=== PATIENT | female | born 1990 | race Caucasian/White ===

== ENCOUNTER → 2016-08-13 | Outpatient (CLI) | payer OTHER | END | disposition home or self-care (01) | LOC: LABWHC1 16:45 | PROVIDERS: ATTEND Physician Assistant Medical | DX: L70.0 Acne vulgaris (principal) | CPT/HCPCS: 36415; 84702 ==

== ENCOUNTER → 2016-12-22 | Outpatient (CLI) | payer OTHER ==
[2016-12-22 11:41] LABS: Basophils # (A) 0.1 k/uL (0-0.2); Basophils % (A) 1 %; CH 31.9; CHCM 34.1; Eosinophils # (A) 0.1 k/uL (0-0.7); Eosinophils % (A) 1 %; HCT 43.8 % (34.0-46.0); HDW 2.28; HGB 14.5 gm/dL (11.4-16.0); Luc # (Auto) 0.15; Luc % (Auto) 2; Lymphocytes # (A) 2.5 k/uL (1.0-4.8); Lymphocytes % (A) 25 %; MCH 31.1 pg (25.0-35.0); MCHC 33.1 g/dL (31.0-37.0); MCV 93.8 fL (80.0-100.0); Mean Platelet Volume 7.7; Monocytes # (A) 0.5 k/uL (0-1.0); Monocytes % (A) 5 %; Neutrophils # (A) 6.7 k/uL (1.3-7.7); Neutrophils % (A) 68 %; RBC 4.66 m/uL (3.80-5.40); RDW 13.1 % (11.5-15.5); WBC 9.9 k/uL (3.8-10.6); WBC (Perox) 9.36
[2016-12-22 12:16] LABS: ALT 26 U/L (9-52); AST 15 U/L (14-36); Cholesterol 208 mg/dL (<200)
== END | disposition home or self-care (01) ==
LOC: LABWHC1 10:33
PROVIDERS: ATTEND Physician Assistant Medical
DX: L70.0 Acne vulgaris (principal)
CPT/HCPCS: 36415; 82465; 84450; 84460; 84478; 84702; 85025

== ENCOUNTER 2022-01-25 09:27 | Outpatient (CLI) | payer BC, OTHER ==
[2022-01-25 09:58] LABS: Appearance,Urine Clear (Clear); Bilirubin,Urine Negative (Negative); Blood,Urine Negative (Negative); Color,Urine Colorless; Glucose,Urine (UA) Negative (Negative); Ketones,Urine Negative (Negative); Leukocyte Esterase,Urine Negative (Negative); Nitrite,Urine Negative (Negative); Protein,Urine Negative (Negative); Specific Gravity,Urine 1.004 (1.001-1.035); Urobilinogen,Urine <2.0 mg/dL (<2.0)
[2022-01-25 11:07] LABS: ALT 11 U/L (4-34); AST 20 U/L (14-36); African American GFR (CKD) >90 (>60 ml/min/1.73 sqM); Blood Urea Nitrogen 6 mg/dL (7-17); LDH 396 U/L (313-618); Non-African American GFR(CKD) >90 (>60 ml/min/1.73 sqM); Uric Acid 2.9 mg/dL (3.7-7.4)
[2022-01-25 11:17] LABS: Basophils % (A) 0 %; Eosinophils % (A) 0 %; HCT 32.7 % (34.0-46.0); HGB 11.2 gm/dL (11.4-16.0); Lymphocytes # (A) 1.7 k/uL (1.0-4.8); Lymphocytes % (A) 16 %; MCH 32.4 pg (25.0-35.0); MCHC 34.3 g/dL (31.0-37.0); MCV 94.2 fL (80.0-100.0); Monocytes # (A) 0.5 k/uL (0-1.0); Monocytes % (A) 4 %; Neutrophils # (A) 8.4 k/uL (1.3-7.7); Neutrophils % (A) 78 %; Platelet Count 254 k/uL (150-450); RBC 3.47 m/uL (3.80-5.40); RDW 12.4 % (11.5-15.5); WBC 10.8 k/uL (3.8-10.6)
[2022-01-25 12:02] LABS: Creatinine,Urine Random 18.8 mg/dL; Protein/Creatinine Ratio,Urine 0.585
[2022-01-25 12:11] VITALS: BP 134/76; PULSE 72; RESP 16; TEMP 97.5
== END 2022-01-25 11:47 | disposition home or self-care (01) ==
LOC: FBPOP 09:27
PROVIDERS: ATTEND Obstetrics & Gynecology
DX: H53.8 Other visual disturbances (principal)
CPT/HCPCS: 59025; 81003; 82565; 82570; 83615; 84156; 84450; 84460; 84520; 84550; 85025; 99215

== ENCOUNTER 2022-02-27 06:00 | Inpatient (IN) | payer BC ==
[2022-02-27] MEDS ORDERED: TERBUTALINE 1 MG/ML VIAL SQ PRN (06:11)
[2022-02-27] MEDS ORDERED: LIDOCAINE 0.5% (PF) 5 MG/ML (50 ML SDV) SQ PRN (06:11)
[2022-02-27] MEDS ORDERED: OXYTOCIN 30 UNITS/500 ML NS 30 UNIT in SALINE 1 500ML.BAG IV SCH ×2 (06:15→12:15)
[2022-02-27] MEDS: LACTATED RINGERS 1,000 ML IV SCH ×2 (06:20→19:59)
[2022-02-27 06:42] LABS: Basophils % (A) 0 %; Eosinophils # (A) 0.1 k/uL (0-0.7); Eosinophils % (A) 0 %; HCT 33.7 % (34.0-46.0); HGB 11.5 gm/dL (11.4-16.0); Lymphocytes # (A) 2.4 k/uL (1.0-4.8); Lymphocytes % (A) 20 %; MCHC 34.1 g/dL (31.0-37.0); MCV 90.9 fL (80.0-100.0); Mean Platelet Volume 8.4; Monocytes # (A) 0.7 k/uL (0-1.0); Monocytes % (A) 6 %; Neutrophils # (A) 8.7 k/uL (1.3-7.7); Neutrophils % (A) 72 %; Platelet Count 260 k/uL (150-450); RBC 3.71 m/uL (3.80-5.40); RDW 13.1 % (11.5-15.5); WBC 12.1 k/uL (3.8-10.6)
[2022-02-27] MEDS ORDERED: diphenhydrAMINE 50 MG CAP PO PRN (12:01)
[2022-02-27] MEDS ORDERED: SIMETHICONE 80 MG CHEWABLE PO PRN (12:01)
[2022-02-27] MEDS ORDERED: diphenhydrAMINE 25 MG CAP PO PRN (12:01)
[2022-02-27] MEDS ORDERED: HYDROCORTISONE 2.5% RECTAL CREAM 30 GM TUBE RECTAL PRN (12:01)
[2022-02-27] MEDS ORDERED: ZOLPIDEM 5 MG TAB PO PRN (12:01)
[2022-02-27] MEDS ORDERED: diphenhydrAMINE 50 MG/ML 1 ML VIAL IVP PRN ×2 (12:01)
[2022-02-27] MEDS ORDERED: LANOLIN CREAM 5 GM TUBE TOPICAL PRN (12:01)
[2022-02-27] MEDS ORDERED: BENZOCAINE/MENTHOL SPRAY 1 GM/SPRAY AEROSOL TOPICAL PRN (12:01)
--- NOTE | 2022-02-27 12:11 | P.HPOB ---
History of Present Illness H&P Date: 02/27/22 Chief Complaint: Induction of Labor 31 year old presents at 37 weeks for induction of labor. She has been having ocular migraines with vision loss. These have been worsening over the last few weeks. I discussed the case with MFSophie who advised delivery. Cervix is 3/70/-2. She is reymundo irregularly and heart tones 140 with moderate variability and reactive. Review of Systems All systems: negative Constitutional: Denies chills, Denies fever Eyes: denies blurred vision, denies pain Ears, nose, mouth and throat: Denies headache, Denies sore throat Cardiovascular: Denies chest pain, Denies shortness of breath Respiratory: Denies cough Gastrointestinal: Denies abdominal pain, Denies diarrhea, Denies nausea, Denies vomiting Genitourinary: Denies dysuria, Denies hematuria Musculoskeletal: Denies myalgias Integumentary: Denies pruritus, Denies rash Neurological: Denies numbness, Denies weakness Psychiatric: Denies anxiety, Denies depression Endocrine: Denies fatigue, Denies weight change Past Medical History Past Medical History: No Reported History History of Any Multi-Drug Resistant Organisms: None Reported Past Surgical History: No Surgical Hx Reported Additional Past Surgical History / Comment(s): Patient has had oral surgery. Past Anesthesia/Blood Transfusion Reactions: No Reported Reaction Past Psychological History: No Psychological Hx Reported Smoking Status: Never smoker Past Alcohol Use History: None Reported Past Drug Use History: None Reported Medications and Allergies Home Medications Medication Instructions Recorded Confirmed Type Jsn-Rqif-[place] Acid 1 tab PO HS 03/11/14 02/27/22 History [-U Capsule (formulary)] Allergies Allergy/AdvReac Type Severity Reaction Status Date / Time No Known Allergies Allergy Verified 02/27/22 06:09 Exam Osteopathic Statement: *. No significant issues noted on an osteopathic structural exam other than those noted in the History and Physical/Consult. Vital Signs Temp Pulse Resp BP Pulse Ox 02/27/22 11:45 62 16 129/74 02/27/22 11:33 61 16 124/72 02/27/22 11:18 80 16 132/77 02/27/22 06:08 97.6 F 85 16 138/83 98 Intake and Output 02/26/22 02/27/22 02/27/22 22:59 06:59 14:59 Output Total 400 Balance -400 Output: Estimated Blood Loss 400 Other: Weight 82.554 kg HEart: RRR Lungs: CTAB Abdomen: soft, nontender Extremeties: neg kezia's Results Result Diagrams: 02/27/22 06:20 Abnormal Lab Results - Last 24 Hours (Table) 02/27/22 Range/Units 06:20 WBC 12.1 H (3.8-10.6) k/uL RBC 3.71 L (3.80-5.40) m/uL Hct 33.7 L (34.0-46.0) % Neutrophils # 8.7 H (1.3-7.7) k/uL Assessment and Plan (1) Ocular migraine Current Visit: Yes Status: Chronic Code(s): G43.109 - MIGRAINE WITH AURA, NOT INTRACTABLE, W/O STATUS MIGRAINOSUS SNOMED Code(s): 59441197 (2) 37 weeks gestation of Current Visit: Yes Status: Acute Code(s): Z3A.37 - 37 WEEKS GESTATION OF SNOMED Code(s): 48684867 Plan: 1. induction of labor with amniotomy and pitocin 2. anticipate normal vaginal delivery
[2022-02-27] MEDS: IBUPROFEN 600 MG TAB PO PRN ×2 (12:50→19:57)
[2022-02-27] MEDS: ACETAMINOPHEN TAB 325 MG TAB PO PRN (18:15)
[2022-02-27] MEDS: SENNOSIDES-DOCUSATE SODIUM 1 EACH TAB PO SCH (19:58)
[2022-02-28 06:57] LABS: Basophils % (A) 0 %; Eosinophils # (A) 0.1 k/uL (0-0.7); Eosinophils % (A) 0 %; HCT 30.8 % (34.0-46.0); HGB 10.3 gm/dL (11.4-16.0); Lymphocytes # (A) 2.4 k/uL (1.0-4.8); Lymphocytes % (A) 18 %; MCH 31.4 pg (25.0-35.0); MCHC 33.4 g/dL (31.0-37.0); Mean Platelet Volume 8.9; Monocytes # (A) 0.8 k/uL (0-1.0); Monocytes % (A) 6 %; Neutrophils # (A) 9.9 k/uL (1.3-7.7); Neutrophils % (A) 73 %; Platelet Count 211 k/uL (150-450); RBC 3.28 m/uL (3.80-5.40); RDW 13.1 % (11.5-15.5); WBC 13.5 k/uL (3.8-10.6)
[2022-02-28] MEDS: SENNOSIDES-DOCUSATE SODIUM 1 EACH TAB PO SCH ×2 (07:26→23:59)
[2022-02-28] MEDS: IBUPROFEN 600 MG TAB PO PRN ×3 (07:26→18:55)
--- NOTE | 2022-02-28 09:15 | P.PROBDLV ---
Vaginal Delivery Note - . Vaginal Delivery Note: 31 year old presents at 37 weeks for induction of labor. She has been having ocular migraines with vision loss. These have been worsening over the last few weeks. I discussed the case with MFSophie who advised delivery. Cervix is 3/70/-2. She is reymundo irregularly and heart tones 140 with moderate variability and reactive.Pitocin was started amniotomy performed at 7:18 AM and clear fluid noted. She progressed to complete at 10:32 AM. She pushed and del ivered a viable male over intact perineum at 10:48 AM. Head delivered OA, anterior shoulder delivered gentle downward guidance of the posterior shoulder and rest of body. Nose and mouth bulb suctioned, cord clamped and cut, infant placed mother's abdomen. Apgars 8, 9, weight 6 lbs. 9 oz. Placenta delivered spontaneously, intact with three-vessel cord at 10:51 AM. Vagina, cervix, perineum inspected. Right labial laceration repaired with 3-0 Vicryl. Estimated blood loss 200 mL. Mother and baby in stable condition.
--- NOTE | 2022-02-28 09:16 | P.DS ---
Providers Date of admission: 02/27/22 06:00 Expected date of discharge: 02/28/22 Attending physician: Radha Swenson Primary care physician: Stated None - Discharge Diagnosis(es) (1) Ocular migraine Current Visit: Yes Status: Chronic (2) 37 weeks gestation of Current Visit: Yes Status: Resolved (3) Normal labor and delivery Current Visit: No Status: Acute Hospital Course: patient presented for induction of labor. She underwent a normal vaginal delivery. course was uncomplicated. She denies nausea, vomiting, chest pain, shortness of breath or any calf pain. Patient will be discharged home post term day #1 in stable condition to follow-up with me in 6 weeks. Plan - Discharge Summary Discharge Rx Participant: No New Discharge Prescriptions: New Ibuprofen [Motrin] 600 mg PO Q6HR PRN #30 tab PRN Reason: Mild Pain (Scale 1 To 3) No Action Nyc-Zpza-Ktdvq Acid [-U Capsule (formulary)] 1 tab PO HS Discharge Medication List Qxf-Ifjk-Njosd Acid [-U Capsule (formulary)] 1 tab PO HS 03/11/14 [History] Ibuprofen [Motrin] 600 mg PO Q6HR PRN #30 tab 02/28/22 [Rx] Follow up Appointment(s)/Referral(s): Radha Swenson DO [Doctor of Osteopathic Medicine] - 04/11/22 3:45 am (PP 04/11/2022@3:45) Discharge Disposition: HOME SELF-CARE
[2022-02-28] MEDS: ACETAMINOPHEN TAB 325 MG TAB PO PRN (23:59)
[2022-03-01] MEDS: IBUPROFEN 600 MG TAB PO PRN (06:41)
[2022-03-01 07:56] VITALS: BP 142/82; PULSE 74; RESP 14; TEMP 98.1
[2022-03-01] MEDS: SENNOSIDES-DOCUSATE SODIUM 1 EACH TAB PO SCH (09:37)
== END 2022-03-01 14:24 | disposition home or self-care (01) | DRG 807 ==
LOC: 4FBP 06:00
PROVIDERS: ADMIT Obstetrics & Gynecology; ATTEND Obstetrics & Gynecology
PROC: 10E0XZZ Delivery of Products of Conception, External Approach (ICD-10-PCS; principal; 2022-02-27)
PROC: 0HQ9XZZ Repair Perineum Skin, External Approach (ICD-10-PCS; 2022-02-27)
PROC: 10907ZC Drainage of Amniotic Fluid, Therapeutic from Products of Conception, Via Natural or Artificial Opening (ICD-10-PCS; 2022-02-27)
PROC: 3E033VJ Introduction of Other Hormone into Peripheral Vein, Percutaneous Approach (ICD-10-PCS; 2022-02-27)
PROC: 4A0HXCZ Measurement of Products of Conception, Cardiac Rate, External Approach (ICD-10-PCS; 2022-02-27)
DX: O99.354 Diseases of the nervous system complicating childbirth (principal); Z37.0 Single live birth; G43.109 Migraine with aura, not intractable, without status migrainosus; O26.893 Other specified pregnancy related conditions, third trimester; O70.0 First degree perineal laceration during delivery; H54.7 Unspecified visual loss; Z3A.37 37 weeks gestation of pregnancy
CPT/HCPCS: 85025; 86850; 86900; 86901

== ENCOUNTER → 2022-12-06 | Outpatient (CLI) | payer BC ==
--- NOTE | 2022-12-06 17:15 | US ---
EXAMINATION TYPE: US transvaginal DATE OF EXAM: 12/06/2022 COMPARISON: 10/12/2013 CLINICAL INDICATION: Female, 32 years old with history of N97.9 FEMALE INFERTILITY; Abnormal menses. Hx . TECHNIQUE: Transvaginal (TV). Date of LMP: 11/25/2022, EXAM MEASUREMENTS: Uterus: 7.3 x 5.5 x 3.8 cm Endometrial Stripe: 0.4 cm Right Ovary: 3.5 x 2.4 x 2.0 cm Left Ovary: 4.5 x 2.1 x 1.3 cm 1. Uterus: Anteverted wnl scar is noted anteriorly. 2. Endometrium: wnl 3. Right Ovary: follicles seen 4. Left Ovary: follicles seen 5. Bilateral Adnexa: wnl 6. Posterior cul-de-sac: no free fluid IMPRESSION: 1. No evidence for acute process. 2. Endometrium within normal limits for thickness.
== END | disposition home or self-care (01) ==
LOC: RADUSWWP 16:05
PROVIDERS: ATTEND Family Medicine
DX: N97.9 Female infertility, unspecified (principal); L70.9 Acne, unspecified; L68.0 Hirsutism; N92.6 Irregular menstruation, unspecified
CPT/HCPCS: 76830

== ENCOUNTER → 2023-05-28 | Outpatient (CLI) | payer BC ==
[~2023-05-28] MED LIST: LACTATED RINGERS 1,000 ML BAG ONE
[2023-05-28 19:56] LABS: Basophils % (A) 0 %; Eosinophils % (A) 1 %; HCT 35.1 % (34.0-46.0); HGB 12.2 gm/dL (11.4-16.0); Lymphocytes # (A) 1.7 k/uL (1.0-4.8); Lymphocytes % (A) 26 %; MCH 32.6 pg (25.0-35.0); MCHC 34.8 g/dL (31.0-37.0); MCV 93.6 fL (80.0-100.0); Mean Platelet Volume 7.8; Monocytes # (A) 0.5 k/uL (0-1.0); Monocytes % (A) 7 %; Neutrophils # (A) 4.1 k/uL (1.3-7.7); Neutrophils % (A) 64 %; Platelet Count 233 k/uL (150-450); RBC 3.75 m/uL (3.80-5.40); WBC 6.4 k/uL (3.8-10.6)
[2023-05-28] MEDS: ONDANSETRON 4 MG/2 ML VIAL IVP STA (19:57)
[2023-05-28 19:58] LABS: Appearance,Urine Cloudy (Clear); Bacteria,Urine Rare /hpf; Bilirubin,Urine Negative (Negative); Blood,Urine Negative (Negative); Color,Urine Colorless; Glucose,Urine (UA) Negative (Negative); Ketones,Urine Negative (Negative); Leukocyte Esterase,Urine Large (Negative); Mucus,Urine Rare /hpf; Nitrite,Urine Negative (Negative); PH, Urine 6.5 (5.0-8.0); Protein,Urine Negative (Negative); RBC,Urine 3 /hpf (0-5); Specific Gravity,Urine 1.005 (1.001-1.035); Squamous Epithelial Cell,Urine 3 /hpf (0-4); Urobilinogen,Urine <2.0 mg/dL (<2.0); WBC,Urine 22 /hpf (0-5)
--- NOTE | 2023-05-28 21:12 | P.MSEPDOC ---
Presenting Problems - Arrival Data Date of Arrival on Unit: 05/28/23 Time of Arrival on Unit: 20:20 Mode of Transport: Ambulatory - Complaint OB-Reason for Admission/Chief Complaint: Acute Nausea/Vomiting, Headache Comment: patient presents to triage with body aches and nausea and vomiting since yesterday. Medical History - Information : 1 Para: 0 - Gestational Age Gestational Age by ANDRE (wks/days): 21 Weeks and 0 Days - History Complications: No Care Review of Systems - Review of Systems Constitutional: No problems Breast: No problems ENT: No problems Cardiovascular: No problems Respiratory: No problems Gastrointestinal: No problems Genitourinary: No problems Musculoskeletal: No problems Neurological: No problems Skin: No problems Maternal Triage Index - Maternal Triage Index Presenting for scheduled procedure w/no complaint: No - Stat/Priority 1 Stat Priority 1: No - Urgent/Priority 2 Urgent Priority 2: No - Prompt/Priority 3 Prompt Priority 3: No - Non-Urgent/Priority 4 Non-Urgent Priority 4: Yes Criteria Met for Priority 4: patient presents to triage with body aches and nausea and vomiting since yesterday. Disposition - Disposition OB Disposition: Discharge to home I agree with the RN Medical Screening Exam: Yes Case reviewed; plan agreed upon as documented in EMR&OBIX.: Yes Diagnosis: VOMITING, UNSPECIFIED
== END ==
LOC: FBPOP 18:44
PROVIDERS: ATTEND Obstetrics & Gynecology
DX: O21.9 Vomiting of pregnancy, unspecified (principal); O26.892 Other specified pregnancy related conditions, second trimester; R51.9 Headache, unspecified; Z3A.21 21 weeks gestation of pregnancy
CPT/HCPCS: 99214; 96361; 96374; 36415; 85025; 81001; 87086; 87636; J2405; 96367

== ENCOUNTER → 2023-06-21 | Outpatient (CLI) | payer BC ==
[2023-06-21 15:23] LABS: HCT 36.1 % (37.2-46.3); MCH 32.3 pg (27.0-32.0); MCHC 33.2 g/dL (32.0-37.0); NRBC Per 100 WBC 0 X 10*3/uL (0.00-0.01); Platelet Count 254 X 10*3/uL (140-440); RBC 3.72 X 10*6/uL (4.10-5.20); RDW 13.4 % (11.5-14.5); WBC 10.31 X 10*3/uL (4.50-10.00)
== END | disposition home or self-care (01) ==
LOC: LABWHC1 09:06
PROVIDERS: ATTEND Obstetrics & Gynecology
DX: Z34.82 Encounter for supervision of other normal pregnancy, second trimester (principal)
CPT/HCPCS: 36415; 82950; 85027

== ENCOUNTER → 2023-07-02 | Outpatient (CLI) | payer BC ==
[2023-07-02 13:02] LABS: Glucose 3 Hour, Gest 84 mg/dL
== END | disposition home or self-care (01) ==
LOC: LABWHC1 08:28
PROVIDERS: ATTEND Obstetrics & Gynecology
DX: O99.810 Abnormal glucose complicating pregnancy (principal); Z3A.00 Weeks of gestation of pregnancy not specified
CPT/HCPCS: 36415; 82951; 82952

== ENCOUNTER 2023-07-29 18:14 | Outpatient (CLI) | payer BC ==
[2023-07-29 20:25] VITALS: BP 133/78; PULSE 83; RESP 18; TEMP 98.9
--- NOTE | 2023-08-10 18:16 | P.MSEPDOC ---
Presenting Problems - Arrival Data Date of Arrival on Unit: 07/29/23 Time of Arrival on Unit: 18:14 Mode of Transport: Ambulatory - Complaint OB-Reason for Admission/Chief Complaint: Possible Onset of Labor Comment: Pt arrives today with concerns of abdominal tightening when standing. pt states the tightening lasted 25 minutes of constant tightening. Pt states she also had blurred vision at 1200 and sharp lower abdominal pain at 1400. Medical History - Information : 3 Para: 2 Term: 2 : 0 Abortions: Spontaneous or Elective: 0 Number of Living Children: 2 - Gestational Age Gestational Age by ANDRE (wks/days): 29 Weeks and 6 Days Review of Systems - Review of Systems Constitutional: No problems Breast: No problems ENT: No problems Cardiovascular: No problems Respiratory: No problems Gastrointestinal: No problems Genitourinary: No problems Musculoskeletal: No problems Neurological: No problems Skin: No problems Vital Signs - Temperature Temperature: 98.9 F Temperature Source: Temporal Artery Scan - Pulse Pulse Oximetery Pulse Rate: 83 Pulse Assessment Method: Pulse Oximetry - Respirations Respiratory Rate: 18 Oxygen Delivery Method: Room Air O2 Sat by Pulse Oximetry: 96 - Blood Pressure Right Arm Blood Pressure: 133/78 Blood Pressure Mean: 96 Blood Pressure Source: Automatic Cuff Medical Screen Scoring - Assessment - Baby A Baseline FHR: 140 Heart Rate - NICHD Category: Category I (Normal) NST: Reactive Physician Notification - Physician Notified Physician Notified Date: 07/29/23 Physician Notified Time: 19:50 Physician: Kavitha Guallpa New Order Received: No - Notification Comment Comment: Dr. Guallpa on unit. Request a cervical exam and if patient in closed. Patient can be discharged home. Maternal Triage Index - Maternal Triage Index Presenting for scheduled procedure w/no complaint: No - Stat/Priority 1 Stat Priority 1: No - Urgent/Priority 2 Urgent Priority 2: Yes Provider Notified: Kavitha Guallpa Provider Notified Time: 19:50 Criteria Met for Priority 2: Pt arrives today with concerns of abdominal tightening when standing. pt states the tightening lasted 25 minutes of constant tightening. Pt states she also had blurred vision at 1200 and sharp lower abdominal pain at 1400. Disposition - Disposition OB Disposition: Discharge to home Discharge Date: 07/29/23 Discharge Time: 20:02 I agree with the RN Medical Screening Exam: Yes Physician's MSE Comment: I have neither seen nor examined the patient Case reviewed; plan agreed upon as documented in EMR&OBIX.: Yes Diagnosis: MATERNAL CARE FOR PROBLEM, UNSP, THIRD * DO NOT USE *
== END 2023-07-29 20:02 | disposition home or self-care (01) ==
LOC: FBPOP 18:14
PROVIDERS: ATTEND Obstetrics & Gynecology
DX: O47.03 False labor before 37 completed weeks of gestation, third trimester (principal); Z3A.29 29 weeks gestation of pregnancy
CPT/HCPCS: 59025; 99213

== ENCOUNTER 2023-08-26 16:22 | Outpatient (CLI) | payer BC ==
[2023-08-26 16:58] LABS: Appearance,Urine Clear (Clear); Bilirubin,Urine Negative (Negative); Blood,Urine Negative (Negative); Color,Urine Colorless; Glucose,Urine (UA) Negative (Negative); Ketones,Urine Negative (Negative); Leukocyte Esterase,Urine Large (Negative); Nitrite,Urine Negative (Negative); PH, Urine 6.5 (5.0-8.0); Protein,Urine Negative (Negative); Squamous Epithelial Cell,Urine 1 /hpf (0-4); Urobilinogen,Urine <2.0 mg/dL (<2.0); WBC,Urine 1 /hpf (0-5)
[2023-08-26 17:21] LABS: Creatinine,Urine Random 7.4 mg/dL; Protein/Creatinine Ratio,Urine 1.892
[2023-08-26 17:23] LABS: Basophils % (A) 0 %; Eosinophils # (A) 0.1 k/uL (0-0.7); Eosinophils % (A) 1 %; HCT 34.8 % (34.0-46.0); HGB 11.4 gm/dL (11.4-16.0); Lymphocytes # (A) 1.8 k/uL (1.0-4.8); Lymphocytes % (A) 18 %; MCH 30.4 pg (25.0-35.0); MCHC 32.8 g/dL (31.0-37.0); MCV 92.8 fL (80.0-100.0); Mean Platelet Volume 8.3; Monocytes # (A) 0.5 k/uL (0-1.0); Monocytes % (A) 5 %; Neutrophils # (A) 7.5 k/uL (1.3-7.7); Neutrophils % (A) 74 %; Platelet Count 279 k/uL (150-450); RBC 3.75 m/uL (3.80-5.40); RDW 12.6 % (11.5-15.5); WBC 10.1 k/uL (3.8-10.6)
[2023-08-26 17:32] LABS: ALT 9 U/L (4-34); AST 16 U/L (14-36); African American GFR (CKD) >90 (>60 ml/min/1.73 sqM); Blood Urea Nitrogen 7 mg/dL (7-17); Non-African American GFR(CKD) >90 (>60 ml/min/1.73 sqM); Uric Acid 3.5 mg/dL (3.7-7.4)
[2023-08-26 17:39] LABS: Specific Gravity,Urine 1.003 (1.001-1.035)
--- NOTE | 2023-08-26 18:20 | P.HPOB ---
History of Present Illness H&P Date: 08/26/23 Chief Complaint: IUP at 33-6/7 weeks, hypertension This is a 33-year-old G3, P2 at 33-6/7 weeks that presented from the office with an elevated blood pressure 150s over 80s. Patient denies signs or symptoms of preeclampsia. Patient in addition was noting urticaria. Patient notes good movement denies vaginal bleeding or loss of fluid. On preeclampsia labs, negative labs were appreciated with negative protein on UA, protein creatinine ratio was elevated [employer] CONS[employer] history #1 primary secondary to malpresentation, occiput posterior #2 vaginal after #3 current Review of Systems Constitutional: Denies chills, Denies fatigue, Denies fever Ears, nose, mouth and throat: Denies headache Cardiovascular: Denies leg edema Respiratory: Denies dyspnea Gastrointestinal: Denies nausea, Denies vomiting Genitourinary: Reports Past Medical History Past Medical History: No Reported History History of Any Multi-Drug Resistant Organisms: None Reported Past Surgical History: No Surgical Hx Reported Additional Past Surgical History / Comment(s): Patient has had oral surgery. Past Anesthesia/Blood Transfusion Reactions: No Reported Reaction Smoking Status: Never smoker Medications and Allergies Home Medications Medication Instructions Recorded Confirmed Type Fed-Jcic-Kefyd Acid 1 tab PO HS 03/11/14 08/26/23 History [-U Capsule (formulary)] Allergies Allergy/AdvReac Type Severity Reaction Status Date / Time No Known Allergies Allergy Verified 08/26/23 16:36 Exam Osteopathic Statement: *. No significant issues noted on an osteopathic str uctural exam other than those noted in the History and Physical/Consult. Intake and Output 08/26/23 08/26/23 08/26/23 06:59 14:59 22:59 Other: Weight 83.007 kg Targeted physical exam is performed this date General is well-nourished well- developed female in no acute distress, breathing is nonlabored, abdomen is gravid, heart tones are noted to be category 1 she is not reymundo. Cervical exam is deferred. Results Result Diagrams: 08/26/23 17:07 08/26/23 17:07 Abnormal Lab Results - Last 24 Hours (Table) 08/26/23 08/26/23 08/26/23 Range/Units 16:34 17:07 17:07 RBC 3.75 L (3.80-5.40) m/uL Creatinine 0.42 L (0.52-1.04) mg/dL Uric Acid 3.5 L (3.7-7.4) mg/dL Ur Leukocyte Esterase Large H (Negative) Assessment and Plan (1) 33 weeks gestation of Current Visit: Yes Status: Acute Code(s): Z3A.33 - 33 WEEKS GESTATION OF SNOMED Code(s): 14129323 (2) Hypertension Current Visit: Yes Status: Acute Code(s): I10 - ESSENTIAL (PRIMARY) HYPERTENSION SNOMED Code(s): 48859563 (3) Urticaria Current Visit: Yes Status: Acute Code(s): L50.9 - URTICARIA, UNSPECIFIED SNOMED Code(s): 501385141 Plan: 33-year-old G3, P2 at 33-6/7 weeks that presents from the office with single elevated blood pressures 150s over 80s. Patient denies signs or symptoms of preeclampsia. All preeclampsia labs were noted to be negative. Elevated protein creatinine ratio was appreciated out of range for urine dip. Will initiate 24-hour urine and repeat preeclampsia labs in the morning.
[2023-08-26 18:53] LABS: HCT 37.5 % (34.0-46.0); HGB 11.9 gm/dL (11.4-16.0); MCH 29.6 pg (25.0-35.0); MCHC 31.7 g/dL (31.0-37.0); MCV 93.4 fL (80.0-100.0); Platelet Count 295 k/uL (150-450); RBC 4.01 m/uL (3.80-5.40); RDW 12.6 % (11.5-15.5); WBC 12.7 k/uL (3.8-10.6)
[2023-08-26] MEDS: ACETAMINOPHEN TAB 325 MG TAB PO PRN (23:14)
[2023-08-27 08:58] LABS: ALT 8 U/L (4-34); AST 16 U/L (14-36); African American GFR (CKD) >90 (>60 ml/min/1.73 sqM); Blood Urea Nitrogen 8 mg/dL (7-17); Non-African American GFR(CKD) >90 (>60 ml/min/1.73 sqM); Uric Acid 3.7 mg/dL (3.7-7.4)
[2023-08-27] MEDS: CALCIUM CARBONATE 500 MG CHEWABLE PO PRN (15:35)
[2023-08-27 17:07] VITALS: BP 142/77; PULSE 80; RESP 15; TEMP 98.5
[2023-08-27 18:28] LABS: Total Volume 24 Hour,Urine 3275 mls (800-1800)
[2023-08-27 18:35] LABS: Total Protein 24 Hour,Urine 557 mg/24hr (42.0-225.0)
[2023-08-27 18:56] LABS: 24-hr Urine Specific Gravity 1.007 (1.001-1.035)
== END 2023-08-27 19:00 | disposition home or self-care (01) ==
LOC: FBPOP 16:22 → 4FBP 18:11
PROVIDERS: ADMIT Obstetrics & Gynecology; ATTEND Obstetrics & Gynecology
DX: O16.3 Unspecified maternal hypertension, third trimester (principal); O99.713 Diseases of the skin and subcutaneous tissue complicating pregnancy, third trimester; L50.9 Urticaria, unspecified; Z3A.33 33 weeks gestation of pregnancy; Z79.899 Other long term (current) drug therapy
CPT/HCPCS: 59025; 99213; 82239; 82570; 84156 ×2; 81050; 82565 ×2; 84450 ×2; 84460 ×2; 84520 ×2; 84550 ×2; 85025; 85027; 81001; G0378 ×2

== ENCOUNTER 2023-09-10 09:25 | Outpatient (CLI) | payer BC ==
[2023-09-10 10:39] VITALS: BP 132/87; PULSE 86; RESP 16; TEMP 97.8
--- NOTE | 2023-09-21 12:28 | P.MSEPDOC ---
Presenting Problems - Arrival Data Date of Arrival on Unit: 09/10/23 Time of Arrival on Unit: 09:25 Mode of Transport: Ambulatory - Complaint OB-Reason for Admission/Chief Complaint: Possible Onset of Labor Medical History - Information : 3 Para: 2 Term: 2 : 0 Abortions: Spontaneous or Elective: 0 Number of Living Children: 2 - Gestational Age Gestational Age by ANDRE (wks/days): 36 Weeks and 0 Days Review of Systems - Review of Systems Constitutional: No problems Breast: No problems ENT: No problems Cardiovascular: No problems Respiratory: No problems Gastrointestinal: No problems Genitourinary: No problems Musculoskeletal: No problems Neurological: No problems Skin: No problems Vital Signs - Temperature Temperature: 97.8 F Temperature Source: Temporal Artery Scan - Pulse Right Brachial Pulse Rate: 86 Pulse Assessment Method: Automatic Cuff - Respirations Respiratory Rate: 16 Oxygen Delivery Method: Room Air - Blood Pressure Right Arm Blood Pressure: 132/87 Blood Pressure Mean: 102 Blood Pressure Source: Automatic Cuff Medical Screen Scoring - Cervical Exam Dilation (cm): 0 Effacement (%): 40 Station: -3 Membranes: Intact - Uterine Contractions Frequency From (mins): 7 Frequency To (mins): 5 Duration From (seconds): 40 Duration To (seconds): 50 Intensity: Mild - Assessment - Baby A Baseline FHR: 130 Heart Rate - NICHD Category: Category I (Normal) NST: Reactive Physician Notification - Physician Notified Physician Notified Date: 09/10/23 Physician Notified Time: 10:27 Physician: Radha Swenson New Order Received: Yes - Notification Comment Comment: Dr. Swenson given report on pt. Pt c/o. VS readback. NST reactive. Vag exam difficult to obtain due to cervix being posterior and high. Pt reports apt today with Dr. Swenson this afternoon. Orders recieved to d/c pt to home. Maternal Triage Index - Urgent/Priority 2 Urgent Priority 2: Yes Provider Notified: Radha Swenson Provider Notified Time: 10:27 Criteria Met for Priority 2: Pt reports contractions since 1330 yesterday. Disposition - Disposition OB Disposition: Discharge to home Discharge Date: 09/10/23 Discharge Time: 10:38 I agree with the RN Medical Screening Exam: Yes Case reviewed; plan agreed upon as documented in EMR&OBIX.: Yes Diagnosis: PRIMARY INADEQUATE CONTRACTIONS
== END 2023-09-10 10:38 | disposition home or self-care (01) ==
LOC: FBPOP 09:25
PROVIDERS: ATTEND Obstetrics & Gynecology
DX: O62.0 Primary inadequate contractions (principal); O47.03 False labor before 37 completed weeks of gestation, third trimester; Z3A.36 36 weeks gestation of pregnancy
CPT/HCPCS: 59025; 99213

== ENCOUNTER 2023-09-25 05:42 | Inpatient (IN) | payer BC ==
[2023-09-25] MEDS ORDERED: LIDOCAINE 0.5% (PF) 5 MG/ML (50 ML SDV) SQ PRN (05:55)
[2023-09-25] MEDS ORDERED: METHYLERGONOVINE 0.2 MG/ML 1 ML AMP IM PRN (05:55)
[2023-09-25] MEDS ORDERED: TERBUTALINE 1 MG/ML VIAL SQ PRN (05:55)
[2023-09-25] MEDS ORDERED: miSOPROStoL 200 MCG TAB PO PRN (05:55)
[2023-09-25] MEDS ORDERED: CARBOPROST TROMETHAMINE 250 MCG/ML 1 ML AMP IM PRN (05:55)
[2023-09-25] MEDS ORDERED: OXYTOCIN 10 UNIT/ML 1 ML VIAL IM PRN (05:55)
[2023-09-25] MEDS ORDERED: TRANEXAMIC 1,000 MG/100ML-NACL 1,000 MG in EMPTY BAG 1 BAG IV PRN (05:55)
[2023-09-25] MEDS ORDERED: OXYTOCIN 30 UNITS/500 ML NS 30 UNIT in SALINE 1 500ML.BAG IV SCH (06:00)
[2023-09-25] MEDS: LACTATED RINGERS 1,000 ML IV SCH (06:17)
[2023-09-25 06:35] LABS: Basophils % (A) 0 %; Eosinophils # (A) 0.1 k/uL (0-0.7); Eosinophils % (A) 0 %; HCT 34.7 % (34.0-46.0); HGB 11.5 gm/dL (11.4-16.0); Lymphocytes # (A) 2.5 k/uL (1.0-4.8); Lymphocytes % (A) 20 %; MCH 30.1 pg (25.0-35.0); MCHC 33.1 g/dL (31.0-37.0); MCV 90.9 fL (80.0-100.0); Mean Platelet Volume 8.6; Monocytes # (A) 0.6 k/uL (0-1.0); Monocytes % (A) 5 %; Neutrophils # (A) 8.8 k/uL (1.3-7.7); Neutrophils % (A) 72 %; Platelet Count 240 k/uL (150-450); RBC 3.82 m/uL (3.80-5.40); RDW 13.6 % (11.5-15.5); WBC 12.2 k/uL (3.8-10.6)
[2023-09-25 06:41] LABS: ALT 8 U/L (4-34); AST 18 U/L (14-36); African American GFR (CKD) >90 (>60 ml/min/1.73 sqM); Blood Urea Nitrogen 9 mg/dL (7-17); LDH 188 U/L (120-246); Non-African American GFR(CKD) >90 (>60 ml/min/1.73 sqM); Uric Acid 4.2 mg/dL (3.7-7.4)
[2023-09-25 07:09] LABS: INR 0.8 (<1.2); Prothrombin Time 9.4 sec (10.0-12.5)
[2023-09-25 07:13] LABS: Partial Thromboplastin Time 21.9 sec (22.0-30.0)
[2023-09-25 07:16] LABS: Appearance,Urine Clear (Clear); Bacteria,Urine Rare /hpf; Bilirubin,Urine Negative (Negative); Blood,Urine Small (Negative); Color,Urine Colorless; Glucose,Urine (UA) Negative (Negative); Ketones,Urine Negative (Negative); Leukocyte Esterase,Urine Moderate (Negative); Mucus,Urine Rare /hpf; Nitrite,Urine Negative (Negative); PH, Urine 6.5 (5.0-8.0); Protein,Urine Negative (Negative); RBC,Urine 1 /hpf (0-5); Specific Gravity,Urine 1.013 (1.001-1.035); Squamous Epithelial Cell,Urine 5 /hpf (0-4); Urobilinogen,Urine <2.0 mg/dL (<2.0); WBC,Urine 3 /hpf (0-5)
--- NOTE | 2023-09-25 08:21 | P.HPOB ---
History of Present Illness H&P Date: 09/25/23 Chief Complaint: labor 33 year old presents at 38 weeks 1 day in active labor. HEr cervix is 8/90/-2. She is reymundo every few minutes. category 1 heart tones. Review of Systems All systems: negative Constitutional: Denies chills, Denies fever Eyes: denies blurred vision, denies pain Ears, nose, mouth and throat: Denies headache, Denies sore throat Cardiovascular: Denies chest pain, Denies shortness of breath Respiratory: Denies cough Gastrointestinal: Denies abdominal pain, Denies diarrhea, Denies nausea, Denies vomiting Genitourinary: Denies dysuria, Denies hematuria Musculoskeletal: Denies myalgias Integumentary: Denies pruritus, Denies rash Neurological: Denies numbness, Denies weakness Psychiatric: Denies anxiety, Denies depression Endocrine: Denies fatigue, Denies weight change Past Medical History Past Medical History: No Reported History History of Any Multi-Drug Resistant Organisms: None Reported Past Surgical History: Section Additional Past Surgical History / Comment(s): Patient has had oral surgery. Past Anesthesia/Blood Transfusion Reactions: No Reported Reaction Past Psychological History: No Psychological Hx Reported Smoking Status: Never smoker Past Alcohol Use History: None Reported Past Drug Use History: None Reported - Past Family History Mother Family Medical History: COPD Medications and Allergies Home Medications Medication Instructions Recorded Confirmed Type Bwk-Wayb-Cewtf Acid 1 tab PO HS 03/11/14 09/25/23 History [-U Capsule (formulary)] Allergies Allergy/AdvReac Type Severity Reaction Status Date / Time No Known Allergies Allergy Verified 09/25/23 05:55 Exam Osteopathic Statement: *. No significant issues noted on an osteopathic structural exam other than those noted in the History and Physical/Consult. Vital Signs Temp Pulse Resp BP 09/25/23 05:52 97.5 F L 54 L 16 166/78 Intake and Output 09/24/23 09/25/23 09/25/23 22:59 06:59 14:59 Other: # Voids 1 Weight 87.09 kg Heart: Regular rate and rhythm Lungs: Clear to auscultation bilaterally Abdomen: Soft, nontender Extremities: Negative Homans sign Results Result Diagrams: 09/25/23 06:00 09/25/23 06:00 Abnormal Lab Results - Last 24 Hours (Table) 09/25/23 09/25/23 09/25/23 Range/Units 06:00 06:00 06:40 WBC 12.2 H (3.8-10.6) k/uL Neutrophils # 8.8 H (1.3-7.7) k/uL PT 9.4 L (10.0-12.5) sec APTT 21.9 L (22.0-30.0) sec Fibrinogen 551 H (200-500) mg/dL Urine Blood Small H (Negative) Ur Leukocyte Esterase Moderate H (Negative) Urine WBC Clumps Rare H (None) /hpf Ur Squamous Epith Cells 5 H (0-4) /hpf Urine Bacteria Rare H (None) /hpf Urine Mucus Rare H (None) /hpf Assessment and Plan (1) Normal labor Current Visit: Yes Status: Acute Code(s): O80 - ENCOUNTER FOR FULL-TERM UNCOMPLICATED DELIVERY; Z37.9 - OUTCOME OF DELIVERY, UNSPECIFIED SNOMED Code(s): 73957867 (2) Mild pre-eclampsia Current Visit: No Status: Acute Code(s): O14.00 - MILD TO MODERATE PRE-ECLAMPSIA, UNSPECIFIED TRIMESTER SNOMED Code(s): 88564983 Plan: 1. admit to fbp 2. expectant management 3. anticipate normal vaginal delivery
[2023-09-25] MEDS: OXYTOCIN 30 UNITS/500 ML NS 30 UNIT in SALINE 1 500ML.BAG IV SCH (09:33)
[2023-09-25] MEDS ORDERED: SIMETHICONE 80 MG CHEWABLE PO PRN (10:03)
[2023-09-25] MEDS ORDERED: diphenhydrAMINE 50 MG CAP PO PRN (10:03)
[2023-09-25] MEDS ORDERED: BENZOCAINE/MENTHOL SPRAY 1 GM/SPRAY AEROSOL TOPICAL PRN (10:03)
[2023-09-25] MEDS ORDERED: diphenhydrAMINE 50 MG/ML 1 ML VIAL IVP PRN ×2 (10:03)
[2023-09-25] MEDS ORDERED: ZOLPIDEM 5 MG TAB PO PRN (10:03)
[2023-09-25] MEDS ORDERED: LANOLIN CREAM 1 GM TUBE TOPICAL PRN (10:03)
[2023-09-25] MEDS ORDERED: diphenhydrAMINE 25 MG CAP PO PRN (10:03)
[2023-09-25] MEDS ORDERED: HYDROCORTISONE 2.5% RECTAL CREAM 30 GM TUBE RECTAL PRN (10:03)
[2023-09-25] MEDS: ACETAMINOPHEN TAB 325 MG TAB PO PRN (10:10)
[2023-09-25] MEDS: IBUPROFEN 600 MG TAB PO PRN (13:35)
[2023-09-25 16:13] VITALS: RESP 16
[2023-09-25] MEDS: SENNOSIDES-DOCUSATE SODIUM 1 EACH TAB PO SCH (18:40)
[2023-09-26 01:36] VITALS: PULSE 66; TEMP 98.2
[2023-09-26 06:45] LABS: Basophils # (A) 0.1 k/uL (0-0.2); Basophils % (A) 0 %; Eosinophils # (A) 0.1 k/uL (0-0.7); Eosinophils % (A) 1 %; HCT 33.2 % (34.0-46.0); HGB 10.3 gm/dL (11.4-16.0); Lymphocytes # (A) 2.8 k/uL (1.0-4.8); Lymphocytes % (A) 22 %; MCHC 30.9 g/dL (31.0-37.0); MCV 93.7 fL (80.0-100.0); Monocytes # (A) 0.7 k/uL (0-1.0); Monocytes % (A) 6 %; Neutrophils % (A) 71 %; Platelet Count 205 k/uL (150-450); RBC 3.54 m/uL (3.80-5.40); RDW 13.7 % (11.5-15.5); WBC 12.7 k/uL (3.8-10.6)
[2023-09-26 09:24] VITALS: BP 134/78
--- NOTE | 2023-09-26 09:44 | P.PROBDLV ---
Vaginal Delivery Note - . Vaginal Delivery Note: 33 year old presents at 38 weeks 1 day in active labor. HEr cervix is 8/90/-2. She is reymundo every few minutes. category 1 heart tones. Amniotomy performed at 7:45 AM clear fluid noted. Cervix is completely dilated by 7:50 AM. She pushed, delivered a viable female infant over intact perineum at 9:30 AM. Head delivered OA, anterior shoulder delivered gentle downward guidance followed by posterior shoulder and rest of body. Nose and mouth bulb suctioned, cord clamped and cut, placed mother's abdomen. Apgars 9, 9, weight 8 lbs. 2 oz. Placenta delivered spontaneously, intact with three-vessel cord at 9:33 AM. Vagina, cervix, perineum inspected. No lacerations noted. Estimated blood loss 150 mL. Mother and baby in stable condition
--- NOTE | 2023-09-26 09:47 | P.DS ---
Providers Date of admission: 09/25/23 05:42 Expected date of discharge: 09/26/23 Attending physician: Radha Swenson Primary care physician: Stated None - Discharge Diagnosis(es) (1) Normal labor Current Visit: Yes Status: Resolved (2) Mild pre-eclampsia Current Visit: No Status: Acute (3) Normal labor and delivery Current Visit: No Status: Acute Hospital Course: Patient presented in active labor. Underwent normal vaginal delivery. course was uneventful.She denies nausea, vomiting, chest pain, shortness of breath or calf pain. Patient will be discharged home day #1 in stable condition to follow-up with me in 6 weeks. Plan - Discharge Summary New Discharge Prescriptions: New Ibuprofen [Motrin] 600 mg PO Q6HR PRN #30 tab PRN Reason: Mild Pain Or Fever >= 100.5 No Action Sku-Tpvn-Jpsrq Acid [-U Capsule (formulary)] 1 tab PO HS Discharge Medication List Mjd-Myjf-Zdkqk Acid [-U Capsule (formulary)] 1 tab PO HS 03/11/14 [History] Ibuprofen [Motrin] 600 mg PO Q6HR PRN #30 tab 09/26/23 [Rx] Follow up Appointment(s)/Referral(s): Radha Swenson DO [Doctor of Osteopathic Medicine] - 11/06/23 1:15 pm Discharge Disposition: HOME SELF-CARE
== END 2023-09-26 12:45 | disposition home or self-care (01) | DRG 807 ==
LOC: 4FBP 05:42
PROVIDERS: ADMIT Obstetrics & Gynecology; ATTEND Obstetrics & Gynecology
PROC: 10E0XZZ Delivery of Products of Conception, External Approach (ICD-10-PCS; principal; 2023-09-25)
PROC: 10907ZC Drainage of Amniotic Fluid, Therapeutic from Products of Conception, Via Natural or Artificial Opening (ICD-10-PCS; principal; 2023-09-25)
DX: O14.04 Mild to moderate pre-eclampsia, complicating childbirth (principal); Z28.310 Unvaccinated for COVID-19; Z3A.38 38 weeks gestation of pregnancy; Z37.0 Single live birth
CPT/HCPCS: 81001; 82565; 83615; 84450; 84460; 84520; 84550; 85025; 85384; 85610; 85730; 86850; 86900; 86901